=== PATIENT | male | born 1975 | race Caucasian/White ===

== ENCOUNTER 2016-05-23 19:55 | Emergency (ER) | payer BC ==
[2016-05-23 21:02] VITALS: BP 153/85
--- NOTE | 2016-05-23 21:44 | RAD ---
Indication: Right toe injury. 3 views of the right great toe demonstrates fracture of the distal tuft of the right great toe. No other bone or joint abnormality is noted. IMPRESSION: Fracture of the tuft of the right great toe.
--- NOTE | 2016-05-23 21:49 | ED ---
Lower Extremity - HPI Summary HPI Summary: complaint of left great toe pain heavy object fell on his toe yesterday at 3:30 aching throbbing pain that is non radiating ambulating and movement increase the pain resting his foot lessens the pain, taking advil with relief - History of Current Complaint Chief Complaint: UCLowerExtremity Stated Complaint: TOE INJURY Time Seen by Provider: 05/23/16 21:43 Hx Obtained From: Patient - Allergies/Home Medications Allergies/Adverse Reactions: Allergies Allergy/AdvReac Type Severity Reaction Status Date / Time Bee Venom Allergy Severe Unknown Verified 05/23/16 21:03 Reaction Details PMH/Surg Hx/FS Hx/Imm Hx Previously Healthy: Yes Endocrine/Hematology History: Denies: Hx Diabetes, Hx Thyroid Disease Cardiovascular History: Denies: Hx Congestive Heart Failure, Hx Hypertension, Hx Pacemaker/ICD, Other Cardiovascular Problems/Disorders Respiratory History: Denies: Hx Asthma, Hx Chronic Obstructive Pulmonary Disease (COPD), Other Respiratory Problems/Disorders GI History: Denies: Hx Ulcer History: Denies: Hx Renal Disease Sensory History: Denies: Hx Hearing Aid Psychiatric History: Denies: Hx Panic Disorder - Surgical History Surgery Procedure, Year, and Place: VARICOCELE SURGERY 2008, LT KNEE ARTHROSCOPY 2011. LASER - EYES Infectious Disease History: No Infectious Disease History: Denies: Hx Clostridium Difficile, Hx Hepatitis, Hx Human Immunodeficiency Virus (HIV), Hx of Known/Suspected MRSA, Hx Shingles, Hx Tuberculosis, Hx Known/ Suspected VRE, Hx Known/Suspected VRSA, History Other Infectious Disease, Traveled Outside the [place] in Last 30 Days - Social History Occupation: Employed Full-time Lives: With Family Alcohol Use: Daily Alcohol Amount: 2 drinks daily Substance Use Type: Reports: None Hx Tobacco Use: No Smoking Status (MU): Never Smoked Tobacco Review of Systems Constitutional: Negative Eyes: Negative ENT: Negative Cardiovascular: Negative Respiratory: Negative Gastrointestinal: Negative Genitourinary: Negative Positive: Other - left great toe pain Skin: Negative Neurological: Negative Psychological: Normal All Other Systems Reviewed And Are Negative: Yes Physical Exam Triage Information Reviewed: Yes Vital Signs On Initial Exam: Initial Vitals Temp Pulse Resp BP Pulse Ox 97.7 F 65 12 153/85 100 05/23/16 20:59 05/23/16 20:59 05/23/16 20:59 05/23/16 20:59 05/23/16 20:59 Vital Signs Reviewed: Yes Appearance: Positive: Well-Appearing ENT: Positive: Normal ENT inspection Neck: Positive: No Lymphadenopathy Respiratory/Lung Sounds: Positive: Clear to Auscultation Cardiovascular: Positive: Normal, RRR Abdomen Description: Positive: Nontender, No Organomegaly Bowel Sounds: Positive: Present Musculoskeletal: Positive: Other - left great toe- tenderness, edema throughout no tenderness throughout metatarsals and ankle Neurological: Positive: Normal Psychiatric: Positive: Normal Diagnostics - Vital Signs Vital Signs Temp Pulse Resp BP Pulse Ox 05/23/16 20:59 97.7 F 65 12 153/85 100 - Laboratory Lab Statement: Any lab studies that have been ordered have been reviewed, and results considered in the medical decision making process. Lower Extremity Course/Dx - Diagnoses Differential Diagnosis/HQI/PQRI: Positive: Contusion, Fracture (Closed) Provider Diagnoses: Toe fracture, left, Elevated blood pressure reading Discharge - Discharge Plan Condition: Stable Disposition: HOME Patient Education Materials: Toe Fracture (ED) Referrals: Elmer Wallace MD [Primary Care Provider] - Regan Iverson MD [Medical Doctor] - Additional Instructions: Your blood pressure is elevated. Please contact your primary care provider for further evaluation. Please call patient transition specialist for an appointment. They will evaluate and determine your treatment. It is important to keep weight off of your fracture. . Take ibuprofen 600 mg every 6 hours with food to control pain and reduce inflammation. Please review your discharge instructions. If your symptoms worsen call patient transition specialist or return to urgent care.
== END 2016-05-23 22:20 | disposition home or self-care (01) ==
LOC: UCEAST 19:55
DX: S92.491A Other fracture of right great toe, initial encounter for closed fracture (principal); W20.8XXA Other cause of strike by thrown, projected or falling object, initial encounter; Y93.9 Activity, unspecified; Y92.9 Unspecified place or not applicable; R03.0 Elevated blood-pressure reading, without diagnosis of hypertension
CPT/HCPCS: 99213; G0463

== ENCOUNTER 2018-08-11 16:14 | Emergency (ER) | payer BC ==
[2018-08-11 16:27] VITALS: BP 142/89
--- NOTE | 2018-08-11 16:38 | UC ---
Lower Extremity/Ankle HPI - HPI Summary HPI Summary: 43 yo male presents with RIGHT foot pain. He tells me that yesterday he was going down a water slide into the [place] and impacted the bottom of his right foot on the bottom of the 6ft shallow [place]. Since that time has had some mild pain and swelling to the lateral aspect of his right foot. Pain is worse with ambulation. He has not been able to rest or apply ice. Has not taken anything OTC for his symptoms. - History of Current Complaint Chief Complaint: UCLowerExtremity Stated Complaint: BRUISED FOOT Time Seen by Provider: 08/11/18 16:37 Hx Obtained From: Patient Onset/Duration: Sudden Onset Severity Initially: Moderate Severity Currently: Moderate Pain Intensity: 6 Pain Scale Used: 0-10 Numeric - Allergies/Home Medications Allergies/Adverse Reactions: Allergies Allergy/AdvReac Type Severity Reaction Status Date / Time bee venom protein (honey bee) Allergy Hives/Diff. Verified 08/11/18 16:27 Breathing/I tching Home Medications: Home Medications EPINEPHrine [Epipen 2-Darwin] 0.3 mg IM 08/11/18 [History] PMH/Surg Hx/FS Hx/Imm Hx - Additional Past Medical History Additional PMH: None - Surgical History Surgical History: Yes Surgery Procedure, Year, and Place: VARICOCELE SURGERY 2008, LT KNEE ARTHROSCOPY 2011. LASER - EYES - Family History Known Family History: Positive: None - Social History Occupation: Employed Full-time Lives: With Family Alcohol Use: Weekly Alcohol Amount: 2 drinks daily Substance Use Type: None Smoking Status (MU): Never Smoked Tobacco Review of Systems All Other Systems Reviewed And Are Negative: Yes Constitutional: Positive: Negative Skin: Positive: Negative Respiratory: Positive: Negative Cardiovascular: Positive: Negative Neurovascular: Positive: Negative Musculoskeletal: Positive: Other: - RIGHT foot pain Neurological: Positive: Negative Psychological: Positive: Negative Physical Exam - Summary Physical Exam Summary: GENERAL: NAD. WDWN. No pain distress. SKIN: No rashes, sores, lesions, or open wounds. CHEST: No accessory muscle use. Breathing comfortably and in no distress. CV: Pulses intact PT and DP. Cap refill <2seconds MSK: RIGHT FOOT: Mild TTP at 5th MTP of right foot. FROM. Mild edema at inferior right lateral malleolus. FROM at right ankle. Strength 5/5. NEURO: Alert. Sensations intact and symmetric B/L LEs PSYCH: Age appropriate behavior. Triage Information Reviewed: Yes Vital Signs: Initial Vital Signs Temp 98.5 F 08/11/18 16:22 Pulse 55 08/11/18 16:22 Resp 14 08/11/18 16:22 BP 142/89 08/11/18 16:22 Pulse Ox 99 08/11/18 16:22 Vital Signs Reviewed: Yes Lower Extremity Course/Dx - Course Course Of Treatment: XR: IMPRESSION: NO EVIDENCE FOR FRACTURE, IF THE PATIENT'S SYMPTOMS PERSIST RECOMMEND FOLLOW-UP IMAGING. Discussed results with pt. Suspect foot sprain. Advised to RICE and take tylenol /ibuprofen for discomfort. F/u if symptoms do not improve in 5-7 days. - Differential Dx/Diagnosis Provider Diagnosis: Foot sprain Discharge - Sign-Out/Discharge Documenting (check all that apply): Patient Departure All imaging exams completed and their final reports reviewed: Yes - Discharge Plan Condition: Stable Disposition: HOME Patient Education Materials: Foot Sprain (ED) Referrals: Elmer Wallace MD [Primary Care Provider] - Additional Instructions: If you develop a fever, shortness of breath, chest pain, new or worsening symptoms - please call your PCP or go to the ED immediately. Your blood pressure was high at todays visit. Please see your primary provider within 4 weeks for recheck and re-evaluation. 1) Rest, Ice, and elevate your foot intermittently throughout the day to reduce pain and swelling 2) May take tylenol/ibuprofen as directed for discomfort - Billing Disposition and Condition Condition: STABLE Disposition: Home
== END 2018-08-11 17:05 | disposition home or self-care (01) ==
LOC: UCEAST 16:14
DX: S93.601A Unspecified sprain of right foot, initial encounter (principal); W16.622A Jumping or diving into natural body of water striking bottom causing other injury, initial encounter; Y93.11 Activity, swimming; Y92.828 Other wilderness area as the place of occurrence of the external cause; Y99.8 Other external cause status
CPT/HCPCS: 99211; G0463